=== PATIENT | male | born 1985 | race Hispanic/Latino ===

== ENCOUNTER 2022-03-22 00:57 | Emergency (ER) | payer MEDICAID ==
[2022-03-22 07:34] LABS: Hematocrit 46.4 % (35.5-45.6); Hemoglobin 15.8 gm/dl (11.8-15.2); Mean Corpuscular HGB Conc 34 % (32-34); Mean Corpuscular Volume 92 fl (84-94); Platelet Count 296 K/mm3 (140-440); Red Blood Count 5.02 M/mm3 (3.65-5.03); Red Cell Distribution Width 13.8 % (13.2-15.2)
[2022-03-22 09:48] LABS: BUN/Creatinine Ratio 15; Blood Urea Nitrogen 19 mg/dL (9-20); Calcium 9.4 mg/dL (8.4-10.2); Hemolysis Index 18
[2022-03-22] MEDS ORDERED: MORPHINE 4 MG/1 ML INJ IV ONE (10:38)
[2022-03-22] MEDS ORDERED: ONDANSETRON 4 MG/2 ML INJ IV ONE (10:38)
--- NOTE | 2022-03-22 10:40 | Emergency Department Report ---
ED General Adult HPI - General Chief complaint: Abdominal Pain Stated complaint: Urinary retention, lower abdominal pain and back pain Time Seen by Provider: 03/22/22 10:31 Source: patient, EMS ( EMS documentation not available at time of chart d ictation ), RN notes reviewed Mode of arrival: Ambulatory Limitations: No Limitations - History of Present Illness Initial comments: The patient was evaluated in the emergency department for symptoms described in the history of present illness. He/she was evaluated in the context of the global COVID-19 pandemic, which necessitated consideration that the patient might be at risk for infection with the virus that causes COVID-19. Institutional protocols and algorithms that pertain to the evaluation of pa tients at risk for COVID-19 are in a state of rapid change based on information released by regulatory bodies including the CDC and federal and state organizations. These policies and algorithms were followed during the patient's care in the emergency department. Please note that these policies, procedures and recommendations changed on a rapid basis. Urology: [facility]; [place] location. This is a pleasant and cooperative 36-year-old gentleman, with a history of schizophrenia, kidney stone, who does not have indwelling Silva catheter presently, who does not have indwelling urinary stent that he is aware of, with an additional history of urinary retention. He presents to the ER today with a complaint of suprapubic pain, swelling and distention and inability to urinate for 3 days. He reports having had an obstructive kidney stone in the past and presented with similar symptoms. He has nausea, vomiting and lower back pain. He has no dysuria, but endorses generalized testicular discomfort. His symptoms were much improved with placement of a Silva catheter. Denies additional injuries and complaints at this time. -: Gradual, days(s) Location: abdomen Radiation: back Quality: aching Consistency: constant Improves with: other (Placement of a Silva catheter) Worsens with: other (palpation) - Related Data Previous Rx's Medication Instructions Recorded Last Taken Type Acetaminophen [Non-Aspirin Extra 500 mg PO Q6HR PRN #30 tablet 03/22/22 Unknown Rx Strength] Morphine Sulfate [Morphine Sulfate 7.5 mg PO Q6HR PRN #10 tablet 03/22/22 Unknown Rx IR] Ondansetron [Zofran Odt] 4 mg PO Q8HR PRN #20 tab.rapdis 03/22/22 Unknown Rx Tamsulosin [Flomax] 0.4 mg PO QHS #30 cap 03/22/22 Unknown Rx Allergies Allergy/AdvReac Type Severity Reaction Status Date / Time ketorolac [From Toradol] Allergy Itching Verified 03/22/22 01:01 ED Review of Systems ROS: Stated complaint: RIGHT FLANK PAIN Other details as noted in HPI Comment: All other systems reviewed and negative Gastrointestinal: abdominal pain, nausea Genitourinary: as per HPI, other (Testicular fullness, discomfort, and urinary retention) Musculoskeletal: back pain ED Past Medical Hx - Past Medical History Previous Medical History?: Yes Additional medical history: KIDNEY STONES - Surgical History Past Surgical History?: No - Social History Smoking Status: Never Smoker - Medications Home Medications: Home Medications Medication Instructions Recorded Confirmed Last Taken Type Acetaminophen [Non-Aspirin Extra 500 mg PO Q6HR PRN #30 tablet 03/22/22 Unknown Rx Strength] Morphine Sulfate [Morphine Sulfate 7.5 mg PO Q6HR PRN #10 tablet 03/22/22 Unknown Rx IR] Ondansetron [Zofran Odt] 4 mg PO Q8HR PRN #20 tab.rapdis 03/22/22 Unknown Rx Tamsulosin [Flomax] 0.4 mg PO QHS #30 cap 03/22/22 Unknown Rx ED Physical Exam - General Limitations: No Limitations General appearance: alert, anxious, in distress - Head Head exam: Present: atraumatic, normocephalic - Eye Eye exam: Present: normal appearance, EOMI. Absent: nystagmus - ENT ENT exam: Present: normal exam, normal orophraynx, mucous membranes moist, normal external ear exam - Neck Neck exam: Present: normal inspection, full ROM. Absent: tenderness, meningismus - Respiratory Respiratory exam: Present: normal lung sounds bilaterally. Absent: respiratory distress, wheezes, rales, rhonchi, stridor, decreased breath sounds - Cardiovascular Cardiovascular Exam: Present: regular rate, normal rhythm, normal heart sounds. Absent: bradycardia, tachycardia, irregular rhythm, systolic murmur, diastolic murmur, rubs, gallop - GI/Abdominal GI/Abdominal exam: Present: soft, distended, tenderness, other (There is suprapubic and supraumbilical distention and tenderness noted. There is no right lower quadrant tenderness noted). Absent: guarding, rebound, rigid, pulsatile mass - Rectal Rectal exam: Present: deferred - exam: Present: normal inspection, other (There is normal testicular lie. There is normal cremasteric reflex. There is no testicular tenderness. There is no testicular swelling). Absent: testicular tenderness External exam: Present: normal external exam, other (Chaperoned by nurse Fanny Cavazos) - Extremities Exam Extremities exam: Present: normal inspection, full ROM, other (2+ pulses noted in the bilateral upper and lower extremities. There is no palpable cord. negative Homans sign. Muscular compartments are soft. The pelvis is stable.). Absent: pedal edema, calf tenderness - Back Exam Back exam: Present: normal inspection, full ROM. Absent: tenderness, CVA tenderness (R), CVA tenderness (L), paraspinal tenderness, vertebral tenderness - Neurological Exam Neurological exam: Present: alert, oriented X3, normal gait, other (No facial droop. Tongue midline. Extraocular movements intact bilaterally. Facial sensation intact to light touch in V1, V2, V3 distribution bilaterally. 5 and a 5 strength in 4 extremities. Sensation intact to light touch in 4 extrem ities.). Absent: motor sensory deficit - Psychiatric Psychiatric exam: Present: anxious - Skin Skin exam: Present: warm, dry, intact, normal color. Absent: rash ED Course Vital Signs 03/22/22 03/22/22 03/22/22 00:57 10:56 11:00 Temperature 98.3 F Pulse Rate 96 H 63 62 Respiratory 18 11 L 15 Rate Blood Pressure 136/90 127/93 O2 Sat by Pulse 99 97 Oximetry 03/22/22 03/22/22 03/22/22 11:04 11:16 11:27 Temperature 98.7 F Pulse Rate 68 Respiratory 14 12 Rate Blood Pressure 127/93 O2 Sat by Pulse 98 99 Oximetry 03/22/22 03/22/22 03/22/22 11:30 11:46 12:00 Temperature Pulse Rate 68 73 73 Respiratory 15 13 12 Rate Blood Pressure 126/85 126/85 124/81 O2 Sat by Pulse 99 97 97 Oximetry 03/22/22 03/22/22 12:16 12:30 Temperature Pulse Rate 72 70 Respiratory 12 12 Rate Blood Pressure 124/81 115/77 O2 Sat by Pulse 97 98 Oximetry - Reevaluation(s) Reevaluation #1: 03/22/22 12:14 Differential diagnosis, including but not limited to: Urinary retention, obstructing kidney stone Assessment and plan: 36-year-old gentleman presenting with acute urinary retention, much improved with placement of a Silva catheter. Physical examination is otherwise benign and unremarkable. examination is benign and unremarkable. Laboratory studies nonactionable. Please note that an hCG was initially ordered on this patient because he showed up on the tracking board as female. This is an error. The patient is male and identifies as male. CT scan abdomen pelvis without contrast to assess for stone is ordered. Patient counseled on the natural history of urinary retention, and need for discharge with Silva catheter to leg bag. He articulates understanding, and we will reassess the patient after his CT scan abdomen pelvis has resulted 03/22/22 14:07 The patient is reassessed. He is in no acute distress. Laboratory studies and urinalysis are unremarkable. CT scan abdomen pelvis negative for significant or emergent findings. Rediscussed with patient. He articulates understanding. All questions answered. He endorses that he is reliable to follow-up as an outpatient. He understands that he will be discharged with a leg bag, and he will need to follow-up with his outpatient urologist for trial of void. ED Medical Decision Making - Lab Data Result diagrams: 03/22/22 06:52 03/22/22 06:52 Vital Signs 03/22/22 03/22/22 03/22/22 00:57 10:56 11:00 Temperature 98.3 F Pulse Rate 96 H 63 62 Respiratory 18 11 L 15 Rate Blood Pressure 136/90 127/93 O2 Sat by Pulse 99 97 Oximetry 03/22/22 03/22/22 03/22/22 11:04 11:16 11:27 Temperature 98.7 F Pulse Rate 68 Respiratory 14 12 Rate Blood Pressure 127/93 O2 Sat by Pulse 98 99 Oximetry Lab Results 03/22/22 03/22/22 03/22/22 Range/Units 06:52 06:52 06:52 WBC 8.0 (4.5-11.0) K/mm3 RBC 5.02 (3.65-5.03) M/mm3 Hgb 15.8 H (11.8-15.2) gm/dl Hct 46.4 H (35.5-45.6) % MCV 92 (84-94) fl MCH 31 (28-32) pg MCHC 34 (32-34) % RDW 13.8 (13.2-15.2) % Plt Count 296 (140-440) K/mm3 Sodium 141 (137-145) mmol/L Potassium 4.9 (3.6-5.0) mmol/L Chloride 105.2 (98-107) mmol/L Carbon Dioxide 27 (22-30) mmol/L Anion Gap 14 mmol/L BUN 19 (9-20) mg/dL Creatinine 1.3 (0.8-1.3) mg/dL Estimated GFR > 60 ml/min BUN/Creatinine Ratio 15 % Glucose 95 (75-100) mg/dL Calcium 9.4 (8.4-10.2) mg/dL HCG, Quant < 2 H (0-1) mIU/mL Urine Bilirubin (Negative) Urine RBC (Auto) (0.0-6.0) /HPF // Range/Units 11:05 WBC (4.5-11.0) K/mm3 RBC (3.65-5.03) M/mm3 Hgb (11.8-15.2) gm/dl Hct (35.5-45.6) % MCV (84-94) fl MCH (28-32) pg MCHC (32-34) % RDW (13.2-15.2) % Plt Count (140-440) K/mm3 Sodium (137-145) mmol/L Potassium (3.6-5.0) mmol/L Chloride (98-107) mmol/L Carbon Dioxide (22-30) mmol/L Anion Gap mmol/L BUN (9-20) mg/dL Creatinine (0.8-1.3) mg/dL Estimated GFR ml/min BUN/Creatinine Ratio % Glucose (75-100) mg/dL Calcium (8.4-10.2) mg/dL HCG, Quant (0-1) mIU/mL Urine Bilirubin Neg (Negative) Urine RBC (Auto) < 1.0 (0.0-6.0) /HPF - Radiology Data Radiology results: report reviewed, image reviewed CT ABDOMEN AND PELVIS WITHOUT CONTRAST INDICATION / CLINICAL INFORMATION: Urinary retention with suspected kidney stone. TECHNIQUE: All CT scans at this location are performed using CT dose reduction for ALARA by means of automated exposure control. COMPARISON: None available. FINDINGS: ABDOMEN: There is a 1 mm nonobstructive calculus in the right mid kidney. I see no evidence of hydronephrosis, perinephric soft tissue stranding or renal mass. The liver, spleen, gallbladder, bile ducts, pancreas, adrenal glands and bowel are normal. No adenopathy is present. No vascular abnormality is seen. The lung bases are clear. PELVIS: There is a Silva catheter in a collapsed urinary bladder. Gas in the urinary bladder is likely related to the catheter. The distal ureters are normal. There are surgical changes in both inguinal regions without evidence of hernia. The appendix has been removed. There is no evidence of diverticulitis. No abnormal mass or fluid collection is present. No acute osseous abnormality is seen. IMPRESSION: 1. No acute abnormality. 2. Tiny nonobstructive right renal calculus. No evidence of ureteral calculus or hydronephrosis. Signer Name: Mariusz Miles MD Signed: 03/22/2022 12:55 PM Workstation Name: [id number] Critical care attestation.: If time is entered above; I have spent that time in minutes in the direct care of this critically ill patient, excluding procedure time. ED Disposition Clinical Impression: Acute abdominal pain, Acute urinary retention Lower back pain Qualifiers: Chronicity: acute Back pain laterality: bilateral Sciatica presence: without sciatica Qualified Code(s): M54.50 - Low back pain, unspecified Disposition: 01 HOME / SELF CARE / HOMELESS Is pt being admited?: No Does the pt Need Aspirin: No Condition: Good Instructions: Acute Urinary Retention, Male Additional Instructions: Please keep the Silva catheter in place attached to a leg bag. Cultures are sent today, and results will be available in the next 3 to 5 days. Please have your primary care doctor or primary urologist to contact the medical records department to obtain copies of laboratory studies and imaging studies and culture results. Patient is recommended to follow-up with his outpatient urologist within the next 7 to 10 days for reassessment in the office, and outpatient trial of void. Patient is prescribed pain medication, nausea medication and Flomax, to assist with urination. Take the Flomax at night as directed. Drink 4 to 6 cups of water per day as directed. Consume a low-salt diet otherwise. Do not take alcohol, or sedating medications when taking the morphine sulfate for breakthrough pain, and when taking this medication, do not drive, or make important decisions. Please return to the emergency room right away with new pain, worsened pain, migration of pain, projectile vomiting, change in mental status, confusion, inability tolerate liquid feeds, new, worsened or different symptoms not present on the initial emergency room evaluation Prescriptions: Tamsulosin [Flomax] 0.4 mg PO QHS #30 cap Morphine Sulfate [Morphine Sulfate IR] 7.5 mg PO Q6HR PRN #10 tablet PRN Reason: Pain , Severe (7-10) Acetaminophen [Non-Aspirin Extra Strength] 500 mg PO Q6HR PRN #30 tablet PRN Reason: Pain , Severe (7-10) Ondansetron [Zofran Odt] 4 mg PO Q8HR PRN #20 tab.rapdis PRN Reason: Nausea Referrals: [facility] [Provider Group] - 3-5 Days Forms: Work/School Release Form(ED)
[2022-03-22 11:46] LABS: Bilirubin,Urine NEG (Negative); Blood,Urine NEG (Negative); Color,Urine Yellow (Yellow); Mucus,Urine FEW /HPF; Protein,Urine <15 mg/dL mg/dL (Negative); RBC,Urine < 1.0 /HPF (0.0-6.0); Urobilinogen,Urine < 2.0 mg/dL (<2.0); WBC,Urine < 1.0 /HPF (0.0-6.0)
--- NOTE | 2022-03-22 14:00 | Cat Scan Report ---
CT ABDOMEN AND PELVIS WITHOUT CONTRAST INDICATION / CLINICAL INFORMATION: Urinary retention with suspected kidney stone. TECHNIQUE: All CT scans at this location are performed using CT dose reduction for ALARA by means of automated exposure control. COMPARISON: None available. FINDINGS: ABDOMEN: There is a 1 mm nonobstructive calculus in the right mid kidney. I see no evidence of hydron ephrosis, perinephric soft tissue stranding or renal mass. The liver, spleen, gallbladder, bile ducts , pancreas, adrenal glands and bowel are normal. No adenopathy is present. No vascular abnormality is seen. The lung bases are clear. PELVIS: There is a Silva catheter in a collapsed urinary bladder. Gas in the urinary bladder is likel y related to the catheter. The distal ureters are normal. There are surgical changes in both inguinal regions without evidence of hernia. The appendix has been removed. There is no evidence of diverticu litis. No abnormal mass or fluid collection is present. No acute osseous abnormality is seen. IMPRESSION: 1. No acute abnormality. 2. Tiny nonobstructive right renal calculus. No evidence of ureteral calculus or hydronephrosis. Signer Name: Mariusz Miles MD Signed: 03/22/2022 1:55 PM Workstation Name: [id number]
[2022-03-22 14:44] VITALS: BP 118/80
== END 2022-03-22 15:04 | disposition home or self-care (01) ==
LOC: EDSEX → ED 00:57
DX: R33.9 Retention of urine, unspecified (principal); M54.50 Low back pain, unspecified; R10.9 Unspecified abdominal pain; Z79.899 Other long term (current) drug therapy
CPT/HCPCS: 36415; 74176; 80048; 81001; 84702; 85027; 87086; 96374; 96375; 99284; J2270; J2405